=== PATIENT | male | born 1950 | race Hispanic/Latino ===

== ENCOUNTER 2020-09-30 09:45 | Outpatient (CLI) | payer MEDICARE, OTHER ==
[2020-09-30 18:01] LABS: SARS-CoV-2 MS2 Positive; SARS-CoV-2 N Gene Negative; SARS-CoV-2 S Gene Negative; SARS-CoV-2 by NAA Not Detected (NotDetected); SARS-CoV-2 orf1ab Negative
== END 2020-09-30 09:46 | disposition home or self-care (01) ==
LOC: EDSEX → LABBT 09:45
PROVIDERS: ATTEND Internal Medicine Medical Oncology
DX: Z01.812 Encounter for preprocedural laboratory examination (principal); Z20.828 Contact with and (suspected) exposure to other viral communicable diseases
CPT/HCPCS: 87635; U0003

== ENCOUNTER 2020-10-03 10:00 | Outpatient (CLI) | payer MEDICARE, OTHER ==
--- NOTE | 2020-10-07 10:47 | RAD ---
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 ICD-10: I 69.891 dysphagia following other unspecified cerebrovascular disease. R 13.10 dysphagia, unspecified R 13.19 other dysphagia Malignant neoplasm of the hypopharynx. Performed without radiologist present. Cine series reviewed on [employer] PACS without benefit of speech pathologist report, which is currently unavailable at time of dictation ( 10/07/2020). FINDINGS: Epiglottis is elongated, and does not invert. Significant residue in the vallecula, with poor clearing upon repeat swallows. A lesser degree of residue in the piriform sinuses, with better clearance upon repeat swallow. Penetration, multiple episodes. There is laryngeal elevation. Somewhat restricted hyoid protraction. IMPRESSION: 1.) High-grade pharyngeal dysphagia, includin) noninversion of the epiglottis 3) penetration 4) significant residue in vallecula with poor clearance. 5) see separate, complete report by speech therapist.
== END 2020-10-03 10:01 | disposition home or self-care (01) ==
PROVIDERS: ATTEND Internal Medicine Medical Oncology
DX: I69.891 Dysphagia following other cerebrovascular disease (principal); R13.19 Other dysphagia
CPT/HCPCS: 74230

== ENCOUNTER 2020-12-30 10:45 | Emergency (ER) | payer MEDICARE ==
[~2020-12-30 10:45] MED LIST: Iopamidol-370 76% 500 ML 1 ML ONE
[2020-12-30 11:32] LABS: #Eosinphils 0.2 thou/uL (0.0-0.7); #Lymphocytes 1.1 thou/uL (1.20-3.40); #Monocytes 0.5 thou/uL (0.11-0.59); %Basophils 0.3 % (0.0-1.0); %Eosinophils 2.9 % (0.0-10.0); %Lymphocytes 16.8 % (21.0-51.0); %Monocytes 7.1 % (0.0-10.0); %Neutrophils 72.9 % (42.0-75.0); Hemoglobin 11.1 g/dL (14.0-18.0); Mean Corpuscular Hemoglobin 27.3 pg (27.0-31.0); Mean Corpuscular Volume 85.2 fL (78.0-98.0); Platelet Count 257 thou/uL (130-400); RBC Distribution Width 14.7 % (11.5-14.5); Red Blood Cell (RBC) Count 4.06 mill/uL (4.70-6.10); White Blood Cell (WBC) Count 6.8 thou/uL (4.8-10.8)
[2020-12-30 12:00] LABS: ALT (SGPT) 12 U/L (8-55); AST (SGOT) 18 U/L (5-34); Albumin 4.2 g/dL (3.4-4.8); Alkaline Phosphatase 159 U/L (40-110); Anion Gap 13 mmol/L (10-20); BUN (Urea Nitrogen) 13 mg/dL (8.4-25.7); Bilirubin, Total 0.4 mg/dL (0.2-1.2); Calc. Creatinine Clearance 0 mL/min (70-130); Calcium 9.4 mg/dL (7.8-10.44); Carbon Dioxide 27 mmol/L (23-31); Chloride 99 mmol/L (98-107); Globulin 2.8 g/dL (2.4-3.5); Glucose 99 mg/dL (83-110); Potassium 4.5 mmol/L (3.5-5.1); Sodium 134 mmol/L (136-145)
== END 2020-12-30 13:26 | disposition home or self-care (01) ==
LOC: ERS 10:45
DX: J18.9 Pneumonia, unspecified organism (principal); I10 Essential (primary) hypertension; E11.9 Type 2 diabetes mellitus without complications; Z87.891 Personal history of nicotine dependence
CPT/HCPCS: 71045; 71275; 80053; 83880; 84484; 85025; 93005; Q9967

== ENCOUNTER 2021-05-28 13:09 | Outpatient (CLI) | payer MEDICARE | END 2021-05-28 13:10 | disposition home or self-care (01) | PROVIDERS: ATTEND Otolaryngology Plastic Surgery within the Head & Neck | DX: I69.191 Dysphagia following nontraumatic intracerebral hemorrhage (principal); R13.12 Dysphagia, oropharyngeal phase; R63.3 Feeding difficulties; R13.13 Dysphagia, pharyngeal phase | CPT/HCPCS: 74230 ==